=== PATIENT | male | born 1945 | race Caucasian/White ===

== ENCOUNTER → 2021-03-26 10:43 | Outpatient (CLI) | payer MEDICARE, SELFPAY ==
[2021-03-26 12:20] LABS: COVID19 -Nasal RAPID Negative (Negative)
== END ==
PROVIDERS: Family Provider Internal Medicine Critical Care Medicine; PCP Internal Medicine Critical Care Medicine; Visit Provider Student in an Organized Health Care Education/Training Program
DX: Z01.812 Encounter for preprocedural laboratory examination (principal); Z20.822 Contact with and (suspected) exposure to COVID-19
CPT/HCPCS: 87635; C9803

== ENCOUNTER → 2021-03-27 10:23 | Outpatient (CLI) | payer MEDICARE, SELFPAY ==
--- NOTE | 2021-03-28 13:59 | DI.NM.S_ITS ---
PROCEDURE PERFORMED: Exercise treadmill stress and rest myocardial perfusion imaging study with gating to assess ejection fraction and regional wall motion. DATE OF SERVICE: March 27, 2021 ORDERING PROVIDER: Christos Lopez MD INDICATIONS: The patient is a 75-year-old diabetic male with peripheral arterial disease and exertional dyspnea. CARDIAC STRESS: The patient was able to exercise for a total of 3 minutes 2 seconds on a standard Konstantin protocol suggesting severely reduced exercise capacity with an ENMA of +43%. He had a normal heart rate response to exercise, achieving a maximum heart rate of 133 BPM (91% of his predicted maximum) and a borderline hypertensive blood pressure response with a resting blood pressure of 156/78, increasing to a maximum of 200/90. He had no chest discomfort and had mild dyspnea at peak exercise, but no other anginal symptoms. His resting ECG shows probable LVH, but relatively normal ST segments. There are no significant ST-segment shifts with exercise. He had occasional PACs and PVCs with exercise, but no complex ectopy. At 2 minutes 5 seconds of exercise at a heart rate of 128 BPM, 26.1 millicuries of technetium-99m Myoview was injected. He was imaged 45 minutes later using a gated SPECT acquisition protocol. He returned the following day and was reinjected with an additional 25.0 millicuries of technetium-99m Myoview and was imaged 20 minutes later, again using a quantitated gated SPECT protocol. FINDINGS: RAW DATA: There is fair myocardial tracer uptake but fairly clear diaphragmatic attenuation artifact is noted. The lung/heart ratio was normal at 0.27 with a normal TID ratio of 0.91. QUANTITATED GATED SPECT: Post-stress ejection fraction is estimated at 70% without any focal wall motion abnormality and specifically the inferior wall has normal contractility. The resting ejection fraction is estimated at 75% with a normal resting end-diastolic volume of 100 mL. MYOCARDIAL PERFUSION IMAGING: Post-stress supine images show a fairly normal myocardial perfusion pattern with a mild defect in the proximal to mid inferior wall in a pattern consistent with diaphragmatic attenuation, supported by its complete resolution on the prone images which show a completely normal, homogeneous perfusion pattern. The resting images show an identical perfusion pattern to that of the post-stress supine images. IMPRESSION: 1. Normal myocardial perfusion study. 2. Mild fixed inferior wall perfusion defect that completely resolves on prone imaging, consistent with diaphragmatic attenuation artifact. There is no compelling evidence for myocardial ischemia or previous myocardial infarction. 3. Normal left ventricular systolic function without any focal wall motion abnormality. 4. Severely reduced exercise capacity without angina or ECG evidence of ischemia. Hima Rios - EMMANUEL/malik/cs doc#: [id number]/job#: [id number] dd: 03/28/2021 12:53:00 dt: 03/28/2021 13:47:00 DICTATING MD/COPIES TO: Venu Gregorio MD; Christos Lopez MD; Pat Delgado MD COPIES MNE: CRICKET; ;
== END ==
PROVIDERS: Family Provider Internal Medicine Critical Care Medicine; PCP Internal Medicine; Referring Provider Internal Medicine; Visit Provider Internal Medicine
DX: R06.09 Other forms of dyspnea (principal); E11.51 Type 2 diabetes mellitus with diabetic peripheral angiopathy without gangrene
CPT/HCPCS: 78452; 93017; A9502

== ENCOUNTER → 2022-10-30 13:21 | Outpatient (CLI) | payer MEDICARE, SELFPAY | PROVIDERS: Family Provider Internal Medicine Critical Care Medicine; PCP Internal Medicine; Referring Provider Orthopaedic Surgery Foot and Ankle Surgery; Visit Provider Nurse Practitioner Family | DX: E11.621 Type 2 diabetes mellitus with foot ulcer (principal); L97.512 Non-pressure chronic ulcer of other part of right foot with fat layer exposed; R60.0 Localized edema; L53.9 Erythematous condition, unspecified | CPT/HCPCS: 11042; 99203; 99213 ==

== ENCOUNTER → 2022-11-06 10:27 | Outpatient (CLI) | payer MEDICARE, SELFPAY | PROVIDERS: Family Provider Internal Medicine Critical Care Medicine; PCP Internal Medicine; Referring Provider Orthopaedic Surgery Foot and Ankle Surgery; Visit Provider Nurse Practitioner Family | DX: E11.621 Type 2 diabetes mellitus with foot ulcer (principal); L97.512 Non-pressure chronic ulcer of other part of right foot with fat layer exposed; R60.0 Localized edema; L53.9 Erythematous condition, unspecified | CPT/HCPCS: 99212 ==

== ENCOUNTER → 2022-11-12 09:06 | Outpatient (CLI) | payer MEDICARE, SELFPAY | PROVIDERS: Family Provider Internal Medicine Critical Care Medicine; PCP Internal Medicine; Referring Provider Orthopaedic Surgery Foot and Ankle Surgery; Visit Provider Surgery | DX: E11.622 Type 2 diabetes mellitus with other skin ulcer (principal); L97.512 Non-pressure chronic ulcer of other part of right foot with fat layer exposed; E11.40 Type 2 diabetes mellitus with diabetic neuropathy, unspecified; R60.0 Localized edema; L53.9 Erythematous condition, unspecified | CPT/HCPCS: 11042; 87070; 87075; 87077; 87147; 87205; 99214 ==

== ENCOUNTER → 2022-11-17 09:45 | Outpatient (CLI) | payer MEDICARE, SELFPAY | PROVIDERS: Family Provider Internal Medicine Critical Care Medicine; PCP Internal Medicine; Referring Provider Orthopaedic Surgery Foot and Ankle Surgery; Visit Provider Surgery | DX: E11.621 Type 2 diabetes mellitus with foot ulcer (principal); L97.512 Non-pressure chronic ulcer of other part of right foot with fat layer exposed | CPT/HCPCS: 87070; 87075; 87205; 99213 ==

== ENCOUNTER → 2022-12-02 10:45 | Outpatient (CLI) | payer MEDICARE, SELFPAY | PROVIDERS: Family Provider Internal Medicine Critical Care Medicine; PCP Internal Medicine; Referring Provider Orthopaedic Surgery Foot and Ankle Surgery; Visit Provider Surgery | DX: E11.621 Type 2 diabetes mellitus with foot ulcer (principal); L97.512 Non-pressure chronic ulcer of other part of right foot with fat layer exposed; E11.40 Type 2 diabetes mellitus with diabetic neuropathy, unspecified; R60.0 Localized edema; L53.9 Erythematous condition, unspecified | CPT/HCPCS: 15275; Q4196 ==

== ENCOUNTER → 2022-12-09 10:21 | Outpatient (CLI) | payer MEDICARE, SELFPAY | PROVIDERS: Family Provider Internal Medicine Critical Care Medicine; PCP Internal Medicine; Referring Provider Internal Medicine; Visit Provider Nurse Practitioner Family | DX: E11.621 Type 2 diabetes mellitus with foot ulcer (principal); L97.512 Non-pressure chronic ulcer of other part of right foot with fat layer exposed; E11.40 Type 2 diabetes mellitus with diabetic neuropathy, unspecified; L53.9 Erythematous condition, unspecified | CPT/HCPCS: 97597; 99212; 99213 ==

== ENCOUNTER → 2022-12-16 10:30 | Outpatient (CLI) | payer MEDICARE, SELFPAY | PROVIDERS: Family Provider Internal Medicine Critical Care Medicine; PCP Internal Medicine; Referring Provider Internal Medicine; Visit Provider Surgery | DX: E11.621 Type 2 diabetes mellitus with foot ulcer (principal); L97.512 Non-pressure chronic ulcer of other part of right foot with fat layer exposed; E11.40 Type 2 diabetes mellitus with diabetic neuropathy, unspecified; L53.9 Erythematous condition, unspecified | CPT/HCPCS: 99213 ==

== ENCOUNTER → 2022-12-30 10:51 | Outpatient (CLI) | payer MEDICARE, SELFPAY | PROVIDERS: Family Provider Internal Medicine Critical Care Medicine; PCP Internal Medicine; Referring Provider Internal Medicine; Visit Provider Surgery | DX: Z86.31 Personal history of diabetic foot ulcer (principal); E11.40 Type 2 diabetes mellitus with diabetic neuropathy, unspecified | CPT/HCPCS: 99213 ==

== ENCOUNTER → 2023-11-20 11:03 | Outpatient (CLI) | payer MEDICARE, SELFPAY ==
--- NOTE | 2023-11-20 | DI.MRI.S_ITS ---
PROCEDURE: MR LUMBAR SPINE WO CON INDICATIONS: Other spondylosis, lumbar region;Solitary pulmonar TECHNIQUE: Noncontrast sagittal T1 spin echo and T2 fast echo, sagittal STIR, and T2 fast spin echo through the lumbar spine. In cases with scoliosis, additional coronal T2 fast spin echo may be performed. COMPARISON: None. FINDINGS: Image quality: Excellent. Alignment and Curvature: Grade 1 retrolisthesis L5-S1 Bone Marrow: Chronic degenerative endplate changes Spinal Cord: Conus medullaris terminates at the L1 level. Visualized cord demonstrates normal signal and size. Paraspinous Soft Tissues: Bilateral renal cortical cysts measure up to 5 cm T12-L1: Normal appearance. L1-L2: Normal appearance. L2-L3: Disc space narrowing with hypertrophic facet joints present. No central stenosis. Moderate bilateral foraminal stenosis L3-L4: Disc space narrowing and hypertrophic facet joints with ligamentum flavum laxity combines with dorsal epidural fat to result in moderate central stenosis effacement of both lateral recesses, right greater than left. Moderate left and severe right foraminal stenosis L4-L5: Disc height is maintained. Posterior disc bulge with hypertrophic facet joints and ligamentum flavum laxity results in severe central stenosis. Moderate bilateral foraminal stenosis, left greater than right L5-S1: Disc space narrowing with posterior disc bulge and hypertrophic facet joints noted. Mild central stenosis. Moderate bilateral foraminal stenosis. IMPRESSION: Multilevel degenerative disc disease and arthropathy results in varying degrees of central and foraminal stenosis including severe central stenosis L4-5 and severe foraminal stenosis L3-4 Approved by: Feliz Mendenhall M.D. on 11/22/2023 at 13:41
--- NOTE | 2023-11-20 | DI.CT.S_ITS ---
PROCEDURE: CT CHEST WO CON INDICATIONS: Other spondylosis, lumbar region;Solitary pulmonar TECHNIQUE: Noncontrast 5 mm thick sections acquired from the pulmonary apices to the posterior costophrenic angles. 1 mm lung window, 5 mm thick coronal and sagittal and 7 mm axial MIP reformats were then acquired. For radiation dose reduction, the following was used: automated exposure control, adjustment of mA and/or kV according to patient size. COMPARISON: [facility], RG, CT ANGIO CHEST W / WO CONTRAST, 08/18/2022, 18:03. FINDINGS: Image quality: Diagnostic. Lower Neck: No enlarged lymph nodes. Thyroid: No thyroid nodules which require sonographic follow up, per consensus guidelines. Axillae: No enlarged lymph nodes. Chest Wall: Unremarkable. Bones: No acute fractures. No aggressive appearing lytic or blastic osseous lesions. Moderate to marked multilevel degenerative changes. Multilevel flowing anterior osteophytes suggestive of DISH. Lungs and Pleura: No pneumothorax or pleural effusions. Compared to CT chest dated August 18, 2022, no new or enlarging solid pulmonary nodules. A few scattered solid pulmonary nodules, some of which are calcified, measuring less than 4 mm. For example, right upper lobe noncalcified pulmonary nodule measures 2 mm (3/93). Similar appearance of bilateral lower lobe, left greater than right, peripheral reticulation (3/283). Similar appearance of left upper lobe linear atelectasis/scar. Patent central airways. Heart: Heart size is normal. No pericardial effusion. Mild to moderate three-vessel coronary calcifications. Thoracic Vessels: The aorta and pulmonary arteries demonstrate normal size. Mild calcification of the thoracic aorta and origins of the great vessels. Mediastinum and Gabbie: No enlarged lymph nodes. Esophagus: No wall thickening. Small hiatal hernia. Upper Abdomen: Mild calcification of the abdominal aorta. IMPRESSION: 1. Compared to CT chest dated August 18, 2022, no new or enlarging solid pulmonary nodules. A few scattered solid pulmonary nodules, some of which are calcified, measuring less than 4 mm. Given 1 year stability, in the absence of malignancy, these are considered benign and require no additional follow-up. 2. Similar appearance of bilateral lower lobe, left greater than right, peripheral reticulation, which is nonspecific and could be seen in the setting of interstitial lung disease. 3. Mild to moderate three-vessel coronary calcification. Dictated by: Black Cleaning M.D. on 11/21/2023 at 11:00 Approved by: Black Cleaning M.D. on 11/21/2023 at 11:16
== END ==
PROVIDERS: Family Provider Internal Medicine Critical Care Medicine; PCP Internal Medicine; Referring Provider Internal Medicine; Visit Provider Internal Medicine
DX: M47.816 Spondylosis without myelopathy or radiculopathy, lumbar region (principal); M47.817 Spondylosis without myelopathy or radiculopathy, lumbosacral region; M51.36 Other intervertebral disc degeneration, lumbar region; M51.37 Other intervertebral disc degeneration, lumbosacral region; M48.061 Spinal stenosis, lumbar region without neurogenic claudication; M48.07 Spinal stenosis, lumbosacral region; R91.8 Other nonspecific abnormal finding of lung field; I25.10 Atherosclerotic heart disease of native coronary artery without angina pectoris; I70.0 Atherosclerosis of aorta; K44.9 Diaphragmatic hernia without obstruction or gangrene
CPT/HCPCS: 71250; 72148

== ENCOUNTER → 2025-02-15 10:11 | Outpatient (CLI) | payer MEDICARE, SELFPAY ==
--- NOTE | 2025-02-15 10:13 | DI.MRI.S_ITS ---
PROCEDURE: MR LUMBAR SPINE WO CON INDICATIONS: FACET ARTHROPATHY TECHNIQUE: Noncontrast sagittal T1 spin echo and T2 fast echo, sagittal STIR, and T2 fast spin echo through the lumbar spine. In cases with scoliosis, additional coronal T2 fast spin echo may be performed. COMPARISON: [facility], MR, MR LUMBAR SPINE WO CON, 11/20/2023, 11:17. FINDINGS: Image quality: Excellent. Alignment and Curvature: There are 4 non rib-bearing lumbar vertebral bodies. For purposes of this dictation, the lowest rib bearing vertebral body will be labeled as L1, and not as a thoracic vertebral body. Axial imaging will be described as occurring from T12-L1 through L5-S1. Again noted is retrolisthesis of L5 on S1 measuring 10 mm. Bone Marrow: Marrow is of normal overall signal. No acute vertebral body compression fractures. Spinal Cord: Conus medullaris terminates at the L1-L2. level. Visualized cord demonstrates normal signal and size. Paraspinous Soft Tissues: No paravertebral masses. T12-L1: No canal stenosis or foraminal stenosis. L1-L2: Prominent anterior osteophyte incidentally noted. Mild facet hypertrophy. No canal stenosis or foraminal stenosis. L2-L3: Disc bulge. Facet hypertrophy. No canal stenosis. [id number] right foraminal narrowing. Mild left foraminal narrowing. L3-L4: Disc bulge with associated osteophyte. Superimposed mild right posterior lateral disc protrusion. Prominent facet hypertrophy. Epidural lipomatosis. Epidural lipomatosis contributes to canal stenosis, [id number]. This is unchanged. There is slight improvement in right foraminal narrowing. There is moderate foraminal narrowing with flattening deformity on the exiting right L3 nerve root sleeve. L4-L5: Progressive findings. Diffuse disc bulge. Prominent facet and ligament hypertrophy. Epidural lipomatosis. Interval development of a anterior medially directed facet joint cyst off of the right facet which impinges on the right lateral aspect of the thecal sac. Reference axial image 25 of series 5. There is severe central canal stenosis, in part secondary to the facet joint cyst as well as epidural lipomatosis and disc bulge and facet and ligament hypertrophy. There is mild right foraminal narrowing and mild to moderate left foraminal narrowing. L5-S1: 10 mm retrolisthesis of L5 on S1 is stable. Relatively exuberant facet hypertrophy. No significant central canal stenosis. No significant foraminal stenosis. IMPRESSION: 1. Please note that the there are 4 non rib-bearing lumbar vertebral bodies. The lowest rib-bearing vertebral body will be labeled as L1, and not as a thoracic vertebral body. The level of 10 mm of retrolisthesis will be described as L5-S1. Careful correlation for correct surgical level is required if surgery is contemplated. 2. Underlying multilevel facet arthropathy. This is quite prominent at L4-L5 and L5-S1. 3. Epidural lipomatosis contributes to multilevel canal stenosis. 4. Progression of findings at L4-L5 secondary to development of a anterior medially directed facet joint cyst off of the right facet. There is severe multifactorial canal stenosis. 5. Canal stenosis is stable at L3-L4, [id number]. 6. Improvement in right foraminal narrowing at L3-L4. 7. Multilevel foraminal narrowing as described above. Dictated by: Doyle Salter M.D. on 02/16/2025 at 11:56 Approved by: Doyle Salter M.D. on 02/16/2025 at 12:08
== END ==
PROVIDERS: Family Provider Internal Medicine Critical Care Medicine; Referring Provider Physician Assistant Surgical; Visit Provider Physician Assistant Surgical
DX: M47.26 Other spondylosis with radiculopathy, lumbar region (principal); M47.27 Other spondylosis with radiculopathy, lumbosacral region; M48.062 Spinal stenosis, lumbar region with neurogenic claudication; M48.07 Spinal stenosis, lumbosacral region; M43.17 Spondylolisthesis, lumbosacral region; E88.2 Lipomatosis, not elsewhere classified
CPT/HCPCS: 72148

== ENCOUNTER → 2025-07-17 07:25 | Outpatient (CLI) | payer MEDICARE, SELFPAY ==
--- NOTE | 2025-07-17 07:27 | DI.US.S_ITS ---
PROCEDURE: US ARTERIAL DUPLEX LE BI INDICATIONS: Peripheral vascular disease TECHNIQUE: Color and pulse Doppler interrogation was performed of both lower extremity arterial systems, with image documentation. COMPARISON: None. FINDINGS: Right lower extremity: Common femoral artery: 102 cm/sec, with triphasic flow. Deep femoral artery: 103 cm/sec, with biphasic flow. Proximal superficial femoral artery: 110 cm/sec, with biphasic flow. Mid superficial femoral artery: 142 cm/sec, with biphasic flow. Distal superficial femoral artery: 136 cm/sec, with biphasic flow. Popliteal artery: 52 cm/sec, with triphasic flow. Posterior tibial artery: 59 cm/sec, with biphasic flow. Anterior tibial artery/dorsalis pedis: 117 cm/sec, with biphasic flow. Silva-scale imaging description: Scattered hard/calcified intraluminal plaque. No hemodynamically significant stenosis from the common femoral through the popliteal. Normal waveforms throughout. Left lower extremity: Common femoral artery: 115 cm/sec, with triphasic flow. Deep femoral artery: 195 cm/sec, with biphasic flow. Proximal superficial femoral artery: 233 cm/sec, with triphasic flow. Mid superficial femoral artery: 161 cm/sec, with biphasic flow. Distal superficial femoral artery: 65 cm/sec, with biphasic flow. Popliteal artery: 63 cm/sec, with biphasic/triphasic flow. Posterior tibial artery: 102 cm/sec, with biphasic flow. Anterior tibial artery/dorsalis pedis: 52 cm/sec, with biphasic flow. Silva-scale imaging description: Grayscale appearance suggests a approximately 50% stenosis of the common femoral. There is a hemodynamically significant stenosis of the proximal SFA near its origin with associated velocity increase suggesting a greater than 50% stenosis. All waveforms are physiologic. IMPRESSION: 1. Diffuse patchy plaque bilaterally. 2. All waveforms are within normal limits. 3. No significant stenosis noted on the right between the common femoral and popliteal. 4. On the left, there is suggestion of a 50% stenosis of the common femoral as well as a greater than 50% stenosis at the origin of the SFA. Dictated by: Doyle Salter M.D. on 07/17/2025 at 11:12 Approved by: Doyle Salter M.D. on 07/17/2025 at 11:17
== END ==
LOC: US 07:26
PROVIDERS: Family Provider Internal Medicine Critical Care Medicine; PCP Nurse Practitioner Family; Referring Provider Nurse Practitioner Family; Visit Provider Podiatrist Foot & Ankle Surgery
DX: I73.89 Other specified peripheral vascular diseases (principal)
CPT/HCPCS: 93925